=== PATIENT | male | born 1945 | race Caucasian/White ===

== ENCOUNTER 2020-01-14 09:51 | Outpatient (RCR) | payer MEDICARE | END 2020-04-13 | disposition home or self-care (01) | LOC: CARD 09:51 | PROVIDERS: ATTEND Internal Medicine Interventional Cardiology | DX: I07.1 Rheumatic tricuspid insufficiency (principal); I47.1 Supraventricular tachycardia; I49.1 Atrial premature depolarization; I49.3 Ventricular premature depolarization; R00.2 Palpitations; M79.606 Pain in leg, unspecified | CPT/HCPCS: 93306 ==